=== PATIENT | male | born 1945 | race Caucasian/White ===

== ENCOUNTER 2016-08-30 16:08 | Emergency (ER) | payer MEDICARE, BC ==
--- NOTE | ~2016-08-30 | US85 ---
[facility] A Service of [facility] RADIOLOGY TEXT RESULTS PATIENT: MELIDA MATHIS LOCATION: [facility] : 49 UNIT #: [id number] AGE: [address]: Margie Munoz APRN SEX: M ORDER DR: [id number] [facility] [place] [address]. [place], [place] [address] [id number] E MR#: [id number] Acc #: [id number] NAME: MELIDA MATHIS. : 1945 SEX: M STUDY DATE/TIME: 08/30/2016 19:12 UNIT: [facility] ROOM: STUDY DESCRIPTION: [facility] or [facility] Attending Physician: aMrgie Munoz A.P.R.N. Ordering Physician: Darnell Baltazar Aprn Primary Care Physician: Jerry Cardona PAlanaAMargoth MEDICAL IMAGING REPORT This report is preliminary unless electronic signature is present EXAM Right lower extremity venous ultrasound, 08/30/2016. HISTORY Right foot pain for 5 days. Hypertension. TECHNIQUE Venous ultrasound examination of the right lower extremity was performed using grayscale, spectral Doppler and color flow Doppler imaging. FINDINGS The examination is negative. There is no evidence of right lower extremity deep venous thrombus from the groin to the lower calf. Visualized greater saphenous vein is also patent. IMPRESSION Negative examination. No evidence of right lower extremity DVT. ADDENDUM In area of right foot pain indicated by patient, there may be some mild subcutaneous edema. There is no drainable fluid collection. Please correlate with clinical exam. Dictated by... Daniel Loco M.D. THIS IS AN ELECTRONICALLY VERIFIED REPORT Daniel Loco M.D. at 09/03/2016 4:56 PM ANGELA/bartolo TD: 08/31/2016 01:03 [facility] A Service of [facility] RADIOLOGY TEXT RESULTS PATIENT: MELIDA MATHIS LOCATION: [facility] : 49 UNIT #: [id number] AGE: [address]: Margie Munoz APRN SEX: M ORDER DR: JOB #: [id number] MEDICAL IMAGING REPORT Page 1 of 1 COPY
[~2016-08-30 16:08] MED LIST: BACITRACIN3.5 GM OPT OS; KEFLEX500 MG PO; PRILOSEC20 M1 PO; [UNRECOGNIZED DRUG - REMARK] PO
[2016-08-30 19:58] LABS: BASOPHIL% 0.5 % (0-2.5); EOSINOPHIL% 0.3 % (0.0-7.0); HEMATOCRIT 31.4 % (38.0-50.0); HEMOGLOBIN 10.2 gm/dL (13.0-16.0); LYMPHOCYTE# 0.7 X10e3 (1.0-3.5); LYMPHOCYTE% 9.1 % (17.0-45.0); MEAN CELL VOLUME 82.3 FL (83-96); MEAN CORPUSCULAR HEMOGLOBIN 26.6 PG (28-34); MEAN CORPUSCULAR HGB CONC 32.3 g/dL (30-36); MEAN PLATELET VOLUME 7.7 FL (6.5-11.5); MONOCYTE# 0.4 X10e3 (0-1.0); NEUTROPHIL# 6.2 X10e3 (1.5-7.1); NEUTROPHIL% 84.1 % (40-75); PLATELET COUNT 232 X10e3 (140-420); RED BLOOD COUNT 3.81 X10e (3.90-5.60); RED CELL DISTRIBUTION WIDTH 18.7 % (11.0-15.5); WHITE BLOOD COUNT 7.4 X10e3 (4.0-10.5)
[2016-08-30 20:01] LABS: DIFF IND YES
[2016-08-30 20:15] LABS: ALBUMIN SERUM 4.4 g/dL (3.5-5.0); BILIRUBIN,TOTAL 1.1 mg/dL (0.2-2.0); BUN/CREATININE RATIO 16.15; CALCIUM SERUM 8.8 mg/dL (8.4-10.2); CREATININE SERUM 1.3 mg/dL (0.6-1.4); GLOM FILT RATE Estimated 55.7 mL/min (>60); PROTEIN TOTAL SERUM 6.9 g/dL (6.0-8.3)
[2016-08-30 20:19] LABS: ANISOCYTOSIS MOD; NUCLEATED RED BLOOD CELL 3 /100 (0); PLATELET ESTIMATE NORMAL (NORMAL)
[2016-08-30 20:20] LABS: HYPOCHROMIA SL
== END 2016-08-30 20:55 | disposition home or self-care (01) ==
LOC: CFTX 16:08 → CED 16:08 → CFTX 18:12
PROVIDERS: Nurse Practitioner Family
DX: L03.115 Cellulitis of right lower limb (principal); I10 Essential (primary) hypertension; Z98.890 Other specified postprocedural states; Z79.899 Other long term (current) drug therapy
CPT/HCPCS: 80053; 85025; 85652; 86140; 93971; 99284